=== PATIENT | male | born 1995 | race Two or more races ===

== ENCOUNTER 2016-11-28 22:41 | Emergency (ER) | payer SELFPAY ==
[~2016-11-28] VITALS: Ht 177.8 cm; Wt 81.2 kg
[2016-11-28 23:19] VITALS: BP 134/81
== END 2016-11-29 00:42 | disposition home or self-care (01) ==
LOC: ER 22:41
DX: S86.912A Strain of unspecified muscle(s) and tendon(s) at lower leg level, left leg, initial encounter (principal); I48.91 Unspecified atrial fibrillation; W51.XXXA Accidental striking against or bumped into by another person, initial encounter; Y93.66 Activity, soccer; Y99.8 Other external cause status; Y92.89 Other specified places as the place of occurrence of the external cause
CPT/HCPCS: 29505; 73562